=== PATIENT | male | born 1995 | race African-American/Black ===

== ENCOUNTER 2017-10-11 21:52 | Emergency (ER) | payer MEDICAID, OTHER ==
[2017-10-11 22:56] LABS: ABSOLUTE BASOPHILS # (AUTO) 0.1 10^3/uL (0.0-0.2); ABSOLUTE EOSINOPHILS # (AUTO) 0.2 10^3/uL (0.0-0.6); ABSOLUTE LYMPHOCYTES (AUTO) 2.2 10^3/uL (0.5-4.7); ABSOLUTE MONOCYTES (AUTO) 0.6 10^3/uL (0.1-1.4); ABSOLUTE NEUT (AUTO) 7.4 10^3/uL (1.7-8.2); BASOPHILS % (AUTO) 0.8 % (0-2); EOSINOPHILS % (AUTO) 2.1 % (0-6); HEMATOCRIT 43.7 % (37.9-51.0); HEMOGLOBIN 14.8 g/dL (13.5-17.0); LYMPHOCYTES % (AUTO) 20.9 % (13-45); MEAN CORPUSCULAR HEMOGLOBIN 30.5 pg (27.0-33.4); MEAN CORPUSCULAR HGB CONC 33.8 g/dL (32.0-36.0); MEAN CORPUSCULAR VOLUME 90 fl (80-97); MONOCYTES % (AUTO) 6.1 % (3-13); PLATELET COUNT 221 10^3/uL (150-450); RED BLOOD COUNT 4.84 10^6/uL (4.35-5.55); RED CELL DISTRIBUTION WIDTH 13.3 % (11.5-14.0); SEGMENTED NEUTROPHILS % (AUTO) 70.1 % (42-78); TOTAL CELLS COUNTED % (AUTO) 100 %; WHITE BLOOD COUNT 10.6 10^3/uL (4.0-10.5)
[2017-10-11 23:08] LABS: ACETAMINOPHEN < 10 ug/mL (10-30); ALANINE AMINOTRANSFERASE 25 U/L (21-72); ALBUMIN 4.8 g/dL (3.5-5.0); ALCOHOL < 10 mg/dL (NONE DETECTED); ALKALINE PHOSPHATASE 56 U/L (38-126); ANION GAP 10 (5-19); ASPARTATE AMINO TRANSFERASE 28 U/L (17-59); BILIRUBIN,DIRECT 0.2 mg/dL (0.0-0.4); BILIRUBIN,TOTAL 0.3 mg/dL (0.2-1.3); BLOOD UREA NITROGEN 14 mg/dL (7-20); CALCIUM 9.9 mg/dL (8.4-10.2); CARBON DIOXIDE 29 mmol/L (22-30); CHLORIDE 105 mmol/L (98-107); GLUCOSE 81 mg/dL (75-110); POTASSIUM 4.1 mmol/L (3.6-5.0); SALICYLATE < 1.0 mg/dL (2.0-20.0); SODIUM 144.3 mmol/L (137-145); TOTAL PROTEIN 7.8 g/dL (6.3-8.2)
--- NOTE | 2017-10-11 23:48 | ER Document Report ---
ED General - General Chief Complaint: Psych Problem Stated Complaint: PSYCH EVAL Time Seen by Provider: 10/11/17 22:28 Notes: Patient is a 21-year-old male with a past medical history of schizophrenia currently off all medications who presents with several months of progressive worsening paranoia, fear that he is trying to microwave his brain. Patient was on Abilify in the past but discontinued this approximately in November or December 2016. The patient does admit that he realizes some of his symptoms could be psychiatric in origin. He states that he spends most of his day thinking about how the [employer] government is trying to, occasionally painting does not do any productive activity. He is here with his mother who expressed significant concerns about her son's deteriorating mental status although she knows that he has not expressed any acute safety concerns to her such as suicidal or homicidal ideation. He has not demonstrated any patient denies any acute medical complaints. He denies any improve or worsen his symptoms. TRAVEL OUTSIDE OF THE [place] IN LAST 30 DAYS: No - Related Data Allergies/Adverse Reactions: Sulfa (Sulfonamide Antibiotics) Allergy (Verified 03/17/15 23:07) pet dander Allergy (Uncoded 02/13/15 06:05) Past Medical History - General Information source: Patient - Social History Smoking Status: Never Smoker Chew tobacco use (# tins/day): No Frequency of alcohol use: None Drug Abuse: None Lives with: Alone Family History: Reviewed & Not Pertinent Patient has suicidal ideation: No Patient has homicidal ideation: No Pulmonary Medical History: Reports: Hx Asthma Renal/ Medical History: Denies: Hx Peritoneal Dialysis Psychiatric Medical History: Reports: Hx Bipolar Disorder, Hx Depression, Hx Schizophrenia Past Surgical History: Reports: Hx Oral Surgery Review of Systems - Review of Systems Notes: Constitutional: Negative for fever. HENT: Negative for sore throat. Eyes: Negative for visual changes. Cardiovascular: Negative for chest pain. Respiratory: Negative for shortness of breath. Gastrointestinal: Negative for abdominal pain, vomiting or diarrhea. Genitourinary: Negative for dysuria. Musculoskeletal: Negative for back pain. Skin: Negative for rash. Neurological: Negative for headaches, weakness or numbness. 10 point ROS negative except as marked above and in HPI. Physical Exam - Vital signs Vitals: Temp Pulse Resp BP Pulse Ox 98 F 87 18 139/81 H 97 10/11/17 22:08 10/11/17 22:08 10/11/17 22:08 10/11/17 22:08 10/11/17 22:08 Interpretation: Normal Notes: PHYSICAL EXAMINATION: GENERAL: Malodorous, somewhat disheveled but in no distress. HEAD: Atraumatic, normocephalic. EYES: Pupils equal round and reactive to light, extraocular movements intact, sclera anicteric, conjunctiva are normal. ENT: nares patent, oropharynx clear without exudates. Moist mucous membranes. NECK: Normal range of motion, supple without lymphadenopathy LUNGS: Breath sounds clear to auscultation bilaterally and equal. No wheezes rales or rhonchi. HEART: Regular rate and rhythm without murmurs ABDOMEN: Soft, nontender, normoactive bowel sounds. No guarding, no rebound. No masses appreciated. EXTREMITIES: Normal range of motion, no pitting or edema. No cyanosis. NEUROLOGICAL: No focal neurological deficits. Moves all extremities spontaneously and on command. PSYCH: Poor eye contact, blunted mood, not responding to any internal stimuli. SKIN: Warm, Dry, normal turgor, no rashes or lesions noted. Course - Re-evaluation Re-evalutation: 10/11/17 23:47 Patient presents with obvious paranoid delusions although does not be appear to be responding to internal similar at the time of my assessment. It sounds as though this has been an ongoing issue for at least the past several months. Patient denies any acute suicidal or homicidal ideations. Otherwise nontoxic in appearance. He is malodorous with obvious poor hygiene. He used to be on Abilify injections but has discontinued these for at least the past 9-10 months. I have encouraged the patient remain in the emergency department and speak to psychiatry in the morning as he does not meet obvious criteria to be involuntarily committed at this time. He is agreeable to do so at this time. Medical screening exam and labs are unremarkable. - Vital Signs Vital signs: Temp Pulse Resp BP Pulse Ox 99.3 F 79 16 138/88 H 98 10/11/17 22:51 10/11/17 22:51 10/11/17 22:51 10/11/17 22:51 10/11/17 22:51 - Laboratory Result Diagrams: 10/11/17 21:35 10/11/17 21:35 Laboratory results interpreted by me: 10/11/17 10/11/17 21:35 21:35 WBC 10.6 H Salicylates < 1.0 L Acetaminophen < 10 L - EKG Interpretation by Me Additional EKG results interpreted by me: 10/12/17 00:30 Normal sinus rhythm. Rate 82. No ST elevations or depressions. QTC is 402. Discharge - Discharge Clinical Impression: Paranoia Psychosis Qualifiers: Psychosis type: unspecified psychosis type Qualified Code(s): F29 - Unspecified psychosis not due to a substance or known physiological condition Condition: Fair Referrals: KENNETH MOORE DO [Primary Care Provider] - Follow up as needed
--- NOTE | 2017-10-12 09:05 | ER Document Report ---
ED Psych Disorder / Suicide - General Chief Complaint: Psych Problem Stated Complaint: PSYCH EVAL Time Seen by Provider: 10/11/17 22:28 Notes: I have evaluated this patient this am and has no c/o at this time. Feels all of their needs are being met and physical exam is normal. Awaiting dispositon per mental health. TRAVEL OUTSIDE OF THE [place] IN LAST 30 DAYS: No - Related Data Allergies/Adverse Reactions: Sulfa (Sulfonamide Antibiotics) Allergy (Verified 03/17/15 23:07) pet dander Allergy (Uncoded 02/13/15 06:05) Past Medical History - General Information source: Patient - Social History Smoking Status: Never Smoker Chew tobacco use (# tins/day): No Frequency of alcohol use: None Drug Abuse: None Lives with: Alone Family History: Reviewed & Not Pertinent Patient has suicidal ideation: No Patient has homicidal ideation: No Pulmonary Medical History: Reports: Hx Asthma Renal/ Medical History: Denies: Hx Peritoneal Dialysis Psychiatric Medical History: Reports: Hx Bipolar Disorder, Hx Depression, Hx Schizophrenia Past Surgical History: Reports: Hx Oral Surgery Physical Exam - Vital signs Vitals: Temp Pulse Resp BP Pulse Ox 98 F 87 18 139/81 H 97 10/11/17 22:08 10/11/17 22:08 10/11/17 22:08 10/11/17 22:08 10/11/17 22:08 Course - Vital Signs Vital signs: Temp Pulse Resp BP Pulse Ox 97.6 F 89 16 124/72 98 10/12/17 06:28 10/12/17 06:28 10/12/17 06:28 10/12/17 06:28 10/12/17 06:28 - Laboratory Result Diagrams: 10/11/17 21:35 10/11/17 21:35 Laboratory results interpreted by me: 10/11/17 10/11/17 21:35 21:35 WBC 10.6 H Salicylates < 1.0 L Acetaminophen < 10 L Discharge - Discharge Clinical Impression: Paranoia Psychosis Qualifiers: Psychosis type: unspecified psychosis type Qualified Code(s): F29 - Unspecified psychosis not due to a substance or known physiological condition Condition: Fair Referrals: KENNETH MOORE DO [Primary Care Provider] - Follow up as needed
--- NOTE | 2017-10-12 09:08 | ER Document Report ---
Doctor's Note Notes: 10/12/17 09:07 I have evaluated this patient this am and has no c/o at this time. Feels all of their needs are being met and physical exam is normal. Awaiting dispositon per mental health.
--- NOTE | 2017-10-12 09:37 | EKG REPORT ---
SEVERITY:- NORMAL ECG - SINUS RHYTHM : Confirmed by: Caitlin Olvera 12-Oct-2017 09:36:16
[2017-10-12 10:27] LABS: APPEARANCE,URINE CLEAR; BILIRUBIN,URINE NEGATIVE (NEGATIVE); COLOR,URINE YELLOW; GLUCOSE, URINE NEGATIVE (NEGATIVE); KETONES,URINE NEGATIVE (NEGATIVE); LEUKOCYTE ESTERASE,URINE TRACE (NEGATIVE); NITRITE,URINE NEGATIVE (NEGATIVE); PROTEIN,URINE NEGATIVE (NEGATIVE); UROBILINOGEN,URINE NEGATIVE mg/dL (<2.0)
[2017-10-12 10:41] LABS: URINE AMPHETAMINES SCREEN NEGATIVE; URINE BARBITURATES SCREEN NEGATIVE; URINE BENZODIAZEPINES SCREEN NEGATIVE; URINE COCAINE SCREEN NEGATIVE; URINE MARIJUANA (THC) SCREEN NEGATIVE; URINE METHADONE SCREEN NEGATIVE; URINE PHENCYCLIDINE SCREEN NEGATIVE
[2017-10-12] MEDS ORDERED: OLANZAPINE 5 MG TABLET PO SCH (12:45)
[2017-10-12] MEDS ORDERED: BENZTROPINE MESYLATE 1 MG TABLET PO SCH ×2 (12:45→22:00)
--- NOTE | 2017-10-12 13:03 | PSYCHOLOGICAL NOTE ---
Psych Note - Psych Note Psych Note: Reason for consult: Acute psychosis Contact permissions: Teresa Goetz [phone] Eval: [id number] Final Disposition 11:30am Patient is a 21-year-old male. Patient reports people were sending transcranial magnetic stimulation to his brain using thermal cameras. Patient reports he noticed there was a hole in the roof where someone inserted the device that would transmit the stimulation. Patient reports that he wants to ruiz the government because of their involvement. Patient reports his mom convinced him to come here although he does not believe in psychiatrists stating they are "Frauds". Patient reports he is comfortable with speaking to a psychologist instead as they are not frauds. Patient reports he cannot trust doctors because they are "in on it". Patient reports that he does not have a job and has lived with his mom over the last month. Patient reports he was living with a roommate but states the roommate had a friend who was managing him and stealing his life from him. Patient reports it is hard for him to trust people. Patient reports that he can think illogical and logical. Patient reports he saw someone on and felt that that person was talking him. Patient reports he was going to [facility] and saw Dr. Naranjo as his primary care. Patient reports that he moved out December 21, 2016 and moved back in month ago. Patient reports he does not do drugs or alcohol. Patient reports he graduated from [email or web address] in 2014. Patient reports he went to [facility] last year. Collateral information: Patient's mother Teresa Goetz was present in the room Patient's mother reports patient was diagnosed with anxiety his senior year of high school and then he started to hear voices and seeing things that were not there. Patient's mother reports that while a senior he would think she was talking to him when she was not and stated that he was then diagnosed with schizophrenia. Patient's mother reports that he ended up going to [facility] in 2015 and stated that when he returned home after several weeks she was able to give him the decanoate shot 3 months in a row where everything was good. Patient's mother reports that he then moved out with her roommate and refused to take meds because he felt like they did not help him and that he did not need it. Patient's mother reports that she picked him up a month ago and states that in the month he has not left his room go outside. Patient's mother reports that she convinced him to go outside last week where he ended up cursing at the neighbors because he felt someone was stalking him. Patient's mother reports that patient called the nurse's assistant 2 weeks ago because he felt that the [employer] was spying on him. Patient's mother reports that yesterday patient ran outside to yell at the neighbors because he was not trusting them. Patient's mother reports that patient was on Abilify 15 mg in the morning, Lexapro 10 mg daily, and divalproex every day 500 mg however these prescriptions were last given in 2016 and states she had convinced him to take all medication this last week. Patient's mother reports that when he is hearing things it hard for him to calm himself down but he was able to do that last week. Patient's mother reports that if he took medications she feels he could be calmer. Patient's mother reports patient was talking about federal equipment and police government conspiracy theories prior to her convincing him to come to the emergency department. Medication recommendations made by [facility] a contracted psychiatric provider Dr. Carmela MD includes 1. Begin Depakote 500 mg twice a day 2. Begin Zyprexa 5 mg twice a day 3. Begin Cogentin 1 mg daily Diagnosis: Per Hx ( patient's mother reports) 295.90 (F20.9) Schizophrenia Impression/plan: Recommendation for 24 hour hold/petition due to patient experiencing acute psychosis associated with schizophrenia diagnosis. Mental health to reassess at a later time. Patient reports the [employer], federal government, and police are conspiring against him, he is untrusting and believe everything is a fraud. Attending physician in agreement with plan. Consulted with Dr. Newby regarding the management and care of patient.
[2017-10-12] MEDS: DIVALPROEX SODIUM 250 MG TABLET.DR PO SCH (13:58)
[2017-10-12] MEDS: OLANZAPINE 5 MG TABLET PO SCH (22:10)
[2017-10-13] MEDS: DIVALPROEX SODIUM 250 MG TABLET.DR PO SCH (01:00)
--- NOTE | 2017-10-13 09:56 | ER Document Report ---
Doctor's Note Notes: 10/13/17 09:55 Rounds: Chart reviewed and patient interviewed. Patient's mother at bedside during conversation. Vital signs are all normal. Lab studies were all essentially normal. Patient is being evaluated for psychosis with paranoid thoughts. History of schizophrenia. He says he is feeling better. Somewhat slow to answer questions. Patient appears to be medically stable for transfer or discharge. Reji Miller MD
[2017-10-13] MEDS: OLANZAPINE 5 MG TABLET PO SCH (10:25)
--- NOTE | 2017-10-13 11:39 | PSYCHOLOGICAL NOTE ---
Psych Note - Psych Note Psych Note: Reason for consult: Schizophrenia and Paranoia Contact permissions: Teresa Goetz [phone] Patient is a 21-year-old male. Patient reports he is feeling much better and not thinking a lot about the neighbors. Patient reports that he feels the medication helped him get sleep. Patient reports he slept through the night. Patient reports he will follow-up with the provider. Patient reports he will continue taking the medications. Patient reports that he wants to be able to work in 1 day live on his own. Patient reports that he does not feel that there are any transcranial magnetic stimulation happening at this time. Collateral Information: Teresa Goetz Patient's mother reports she noticed patient finally slept and had not been sleeping for days. Patient's mother reports that she will transport patient to appointments and help him fill his prescriptions at the pharmacy. Patient's mother reports that she will keep an eye on patient and will bring him back to the emergency room if she feels he is a harm to himself or others. Patient's mother reports at this time she is not concerned for his safety or others. Med[facility] psychiatric provider Dr. Carmela MD includes 1. Continue Depakote 500 mg twice a day 2. Continue Zyprexa 5 mg twice a day 3. Continue Cogentin 1 mg daily Diagnosis: Per Hx ( patient's mother reports) 295.90 (F20.9) Schizophrenia Impression/plan: Recommendation to rescind involuntary commitment due to patient not meeting criteria [place] GS 122C. Clinician observed patient has improved since yesterday's assessment. Clinician observed patient is more willing to follow-up with an outpatient provider. patient's mother agrees to transport and is included in the safety plan. Clinician provided education to patient and patient's mother regarding the importance of being proactive with his mental health diagnosis of schizophrenia and discussed different treatment options. Mental health [facility] at 12 PM. Attending physician in agreement with gerard Newby regarding the management and care of patient.
[2017-10-13 13:01] VITALS: BP 134/78
== END 2017-10-13 12:38 | disposition home or self-care (01) ==
LOC: ER 21:52
DX: F20.9 Schizophrenia, unspecified (principal); F22 Delusional disorders; J45.909 Unspecified asthma, uncomplicated
CPT/HCPCS: 93005; 99285; 36415; 80307 ×4; 85025; 80053; 81001; 93010; J3490 ×5

== ENCOUNTER 2017-10-18 23:38 | Emergency (ER) | payer MEDICAID ==
[2017-10-12] MEDS: OLANZAPINE 5 MG TABLET PO SCH (18:23)
--- NOTE | 2017-10-19 02:24 | ER Document Report ---
ED General - General Chief Complaint: Psych Problem Stated Complaint: IVC Time Seen by Provider: 10/19/17 01:05 Notes: Patient is a 21-year-old male who presents with complaints of feeling that "there radiowave frequency transcranial radiation and shockwaves penetrating my brain". It is hard to expect with the patient came from. He initially said he was staying at her house but felt the people were stalking him therefore he wants to have his mother. He did mention his mother was sitting to to his father's but he did not go to his father's. He then said that the FBI brought him here. He also said that the [employer] agency made him come here as well. Patient has a history of schizophrenia. When I asked him if he has been taking his medications he says "psychiatry is a scan". I suspect he does not take his medications based on his comments and is obvious paranoid delusions that he is having now. He denies any recent fevers or infections. He has no other complaints at this time. His only request is that we do testing for the "transcranial radiation" that people are sending to his brain. TRAVEL OUTSIDE OF THE [place] IN LAST 30 DAYS: No - Related Data Allergies/Adverse Reactions: Sulfa (Sulfonamide Antibiotics) Allergy (Verified 03/17/15 23:07) pet dander Allergy (Uncoded 02/13/15 06:05) Past Medical History - Social History Smoking Status: Unknown if Ever Smoked Frequency of alcohol use: None Drug Abuse: None Family History: Reviewed & Not Pertinent Pulmonary Medical History: Reports: Hx Asthma Renal/ Medical History: Denies: Hx Peritoneal Dialysis Psychiatric Medical History: Reports: Hx Bipolar Disorder, Hx Depression, Hx Schizophrenia Past Surgical History: Reports: Hx Oral Surgery Review of Systems - Review of Systems Notes: My Normal Review Basic REVIEW OF SYSTEMS: CONSTITUTIONAL : Denies fever, chills, or sweats. Denies recent illness. EENT: Denies eye, ear, throat, or mouth pain or symptoms. Denies nasal or sinus congestion. CARDIOVASCULAR: Denies chest pain. RESPIRATORY: Denies cough, cold, or chest congestion. Denies shortness of breath, difficulty breathing, or wheezing. GASTROINTESTINAL: Denies abdominal pain. Denies nausea, vomiting, or diarrhea. Denies constipation. Last BM: MUSCULOSKELETAL: Denies neck or back pain or joint pain or swelling. SKIN: Denies rash or skin lesions. NEUROLOGICAL: Denies altered mental status or loss of consciousness. Denies headache. Denies weakness or paralysis or loss of use of either side. Denies problems with gait or speech. Denies sensory or motor loss. PSYCHIATRIC: Hallucinations ALL OTHER SYSTEMS REVIEWED AND NEGATIVE. Physical Exam - Vital signs Vitals: Temp Pulse Resp BP Pulse Ox 98.5 F 79 20 150/87 H 96 10/19/17 01:01 10/19/17 01:10/19/17 01:10/19/17 01:01 10/19/17 01:01 - Notes Notes: General Appearance: Well nourished, alert, cooperative, no acute distress, no obvious discomfort. Vitals: reviewed, See vital signs table. Head: no swelling or tenderness to the head Eyes: PERRL, EOMI, Conjuctiva clear Mouth: No decreasd moisture Lungs: No wheezing, No rales, No rhonci, No accessory muscle use, good air exchange bilaterally. Heart: Normal rate, Regular rythm, No murmur, no rub Abdomen: Normal BS, soft, No rigidity, No abdominal tenderness, No guarding, no rebound, no abdominal masses, no organomegaly Extremities: strength 5/5 in all extremities, good pulses in all extremities, no swelling or tenderness in the extremities, no edema. Skin: warm, dry, appropriate color, no rash Neuro: speech clear, oriented x 3, normal affect, responds appropriately to questions. Psychiatric: Patient has ongoing delusions and was seen to be paranoid schizophrenic and that he thinks that secret government agencies were after him and that he is receiving all kinds of radiation to his brain. Does not seem suicidal or homicidal. Course - Re-evaluation Re-evalutation: 10/19/17 05:11 Patient appears to be having active delusions and I suspect is not on his medications based on the fact that he says that psychiatry is a scam. Have consulted psychiatry to see him this morning. Medically patient is stable for psychiatric evaluation. Dictation of this chart was performed using voice recognition software; therefore, there may be some unintended grammatical errors. - Vital Signs Vital signs: Temp Pulse Resp BP Pulse Ox 98.5 F 79 20 150/87 H 96 10/19/17 01:01 10/19/17 01:10/19/17 01:01 10/19/17 01:01 10/19/17 01:01 - Laboratory Result Diagrams: 10/19/17 02:08 10/19/17 02:08 Laboratory results interpreted by me: 10/19/17 02:08 Sodium 145.7 H Total Bilirubin 0.1 L Salicylates < 1.0 L Acetaminophen < 10 L - EKG Interpretation by Me Additional EKG results interpreted by me: 10/19/17 02:24 EKG is reviewed and interpreted by me. EKG shows normal sinus rhythm with a rate of 79 bpm. There is concave up ST segment elevation consistent with early repolarization abnormality. No reciprocal ST segment depressions. PA interval , QRS duration, QTc intervals are within normal range. Old EKG for comparison is from October 11, 2017. Discharge - Discharge Clinical Impression: Delusions Schizophrenia Qualifiers: Schizophrenia type: unspecified Qualified Code(s): F20.9 - Schizophrenia, unspecified Condition: Stable Disposition: PSYCH HOSP/UNIT Referrals: KENNETH MOORE DO [Primary Care Provider] - Follow up as needed
[2017-10-19 02:28] LABS: ABSOLUTE BASOPHILS # (AUTO) 0.1 10^3/uL (0.0-0.2); ABSOLUTE EOSINOPHILS # (AUTO) 0.2 10^3/uL (0.0-0.6); ABSOLUTE LYMPHOCYTES (AUTO) 2.8 10^3/uL (0.5-4.7); ABSOLUTE MONOCYTES (AUTO) 0.7 10^3/uL (0.1-1.4); ABSOLUTE NEUT (AUTO) 6.2 10^3/uL (1.7-8.2); BASOPHILS % (AUTO) 0.7 % (0-2); EOSINOPHILS % (AUTO) 1.8 % (0-6); HEMATOCRIT 43.1 % (37.9-51.0); HEMOGLOBIN 14.4 g/dL (13.5-17.0); LYMPHOCYTES % (AUTO) 28.6 % (13-45); MEAN CORPUSCULAR HGB CONC 33.3 g/dL (32.0-36.0); MEAN CORPUSCULAR VOLUME 90 fl (80-97); PLATELET COUNT 207 10^3/uL (150-450); RED BLOOD COUNT 4.79 10^6/uL (4.35-5.55); RED CELL DISTRIBUTION WIDTH 13.6 % (11.5-14.0); SEGMENTED NEUTROPHILS % (AUTO) 61.9 % (42-78); TOTAL CELLS COUNTED % (AUTO) 100 %; WHITE BLOOD COUNT 9.9 10^3/uL (4.0-10.5)
[2017-10-19 02:46] LABS: ALANINE AMINOTRANSFERASE 31 U/L (21-72); ALBUMIN 4.4 g/dL (3.5-5.0); ALKALINE PHOSPHATASE 53 U/L (38-126); ANION GAP 13 (5-19); ASPARTATE AMINO TRANSFERASE 29 U/L (17-59); BILIRUBIN,DIRECT 0.1 mg/dL (0.0-0.4); BILIRUBIN,TOTAL 0.1 mg/dL (0.2-1.3); BLOOD UREA NITROGEN 14 mg/dL (7-20); CALCIUM 9.6 mg/dL (8.4-10.2); CARBON DIOXIDE 30 mmol/L (22-30); CHLORIDE 103 mmol/L (98-107); GLUCOSE 102 mg/dL (75-110); SODIUM 145.7 mmol/L (137-145); TOTAL PROTEIN 7.2 g/dL (6.3-8.2)
[2017-10-19 02:50] LABS: ACETAMINOPHEN < 10 ug/mL (10-30); ALCOHOL < 10 mg/dL (NONE DETECTED); SALICYLATE < 1.0 mg/dL (2.0-20.0)
--- NOTE | 2017-10-19 08:11 | EKG REPORT ---
SEVERITY:- NORMAL ECG - SINUS RHYTHM ST ELEV, PROBABLE NORMAL EARLY REPOL PATTERN : Confirmed by: Tapan Monterroso MD 19-Oct-2017 08:11:09
[2017-10-19 09:13] LABS: APPEARANCE,URINE CLEAR; BILIRUBIN,URINE NEGATIVE (NEGATIVE); COLOR,URINE YELLOW; GLUCOSE, URINE NEGATIVE (NEGATIVE); KETONES,URINE NEGATIVE (NEGATIVE); LEUKOCYTE ESTERASE,URINE NEGATIVE (NEGATIVE); NITRITE,URINE NEGATIVE (NEGATIVE); PROTEIN,URINE NEGATIVE (NEGATIVE); UROBILINOGEN,URINE NEGATIVE mg/dL (<2.0)
--- NOTE | 2017-10-19 09:24 | ER Document Report ---
Doctor's Note Notes: 10/19/17 09:23 21-year-old male who is brought in with obvious delusions apparently not taking his medications for schizophrenia. Labs and vital signs as recorded. Awaiting psychiatry evaluation. 10/19/17 11:24 Psychiatry has had a medication recommendations and will hold the patient for reevaluation.
[2017-10-19 09:32] LABS: URINE AMPHETAMINES SCREEN NEGATIVE; URINE BARBITURATES SCREEN NEGATIVE; URINE BENZODIAZEPINES SCREEN NEGATIVE; URINE COCAINE SCREEN NEGATIVE; URINE MARIJUANA (THC) SCREEN UNCONFIRMED POSITIVE; URINE METHADONE SCREEN NEGATIVE; URINE PHENCYCLIDINE SCREEN NEGATIVE
[2017-10-19] MEDS ORDERED: BENZTROPINE MESYLATE 1 MG TABLET PO SCH (11:30)
[2017-10-19] MEDS: OLANZAPINE 5 MG TABLET PO SCH (12:07)
[2017-10-19] MEDS: DIVALPROEX SODIUM 500 MG TAB.SR.24H PO SCH ×2 (12:08→18:23)
[2017-10-19] MEDS ORDERED: BENZTROPINE MESYLATE 1 MG TABLET PO ONE (12:45)
--- NOTE | 2017-10-19 13:54 | PSYCHOLOGICAL NOTE ---
Psych Note - Psych Note Psych Note: Reason for consult: Mikey Eval: [id number] Final Disposition: 11:30 am Contact Permissions: Patient's mother Teresa [phone] Patient is a 21-year-old male. Patient reports yesterday they were moving in with his granddad. Patient reports he felt the magnetic waves were getting to him. Patient reports he felt he was being followed by the FBI. Patient reports he went outside to get away from the waves and stated that his granddad told him that he was going to kill him. Patient reports he then went to his mom and stated that his mom said the granddad did not say that and did not believe him. Patient reports that everyone around him has been "talking disorderly". Patient reports he feels as if the staff at the hospital are "talking disorderly". Patient reports that he saw Ricky Koroma walking in the way that he did, and when Ricky Koroma turned " to the left" he knew that he was in on it. Patient reports he has been trying to tell people about Ricky Koroma and stated he wrote letters to Ricky Koroma and Sumi then put them on a thumb drive and mailed the thumb drives to them. Patient reports he was emailing Sumi ( a politician) about the waves and stated that she called the police on him and so the government became involved and started to watch him. Patient reports if he could build something that will stop the transmission waves such as repellent that could repel something that is 60 pounds he would feel safe in his home. Patient reports he does not feel safe in his new home because of his granddad and the waves. Patient reports when he feels safe and better he will stay alone in his room so he could do art and sell it so that he could get his own place. Collateral information: Patient's mother Teresa Goetz (present in room) Patient's mother reports they followed up with [facility] and stated they did not like the provider because they changed his medications assuming that they could not afford the medications that were prescribed at the hospital. Patient's mother reports she was upset because he made a judgment based on what they look like and stated she is willing to pay whatever it takes to give her some the best medications. Patient's mother reports that he was doing fine on the medicines but stated after the visit with the provider he was not trusting of the medications so he did not take them and would only take his vitamins. Patient's mother reports when they discharge she would like a referral for a different provider and stated she heard about [facility] and would like to follow up with them. Patient's mother reports they did move yesterday and are still in the process of moving and states that it is stressing out the patient. Diagnosis: Per Hx ( patient's mother reports) 295.90 (F20.9) Schizophrenia Medication recommendations made by [facility] contracted provider Dr. Carmela MD includes: Begin Depakote 500 mg twice a day Begin Zyprexa 5 mg twice a day Begin Cogentin 1 mg daily Impression/plan: Recommendation for 24-hour petition. Medication recommendations were made. Patient is endorsing paranoid behaviors, and has not been on the medication regiment that was previously recommended during his last visit. Mental health to reassess at a later time. Attending physician in agreement with plan. Consulted with Dr. Newby regarding the management and care of patient.
--- NOTE | 2017-10-20 09:22 | ER Document Report ---
Doctor's Note Notes: 10/20/17 09:22 As the rounding physician for our psychiatric patients, I have reviewed the chart, vitals, lab work. Patient has been examined and noted to be stable at this time, patient in no distress. I am awaiting mental health in put. 10/20/17 10:02
--- NOTE | 2017-10-20 10:02 | PSYCHOLOGICAL NOTE ---
Psych Note - Psych Note Psych Note: Reason for consult: Paranoia Eval: [id number] Final Disposition 11:30 am Contact Permissions: Teresa Goetz Patient is a 21 year old male. Patient reports he plans on thinking about his thoughts when he feels that people are talking in threatening way. Patient reports he thought about was granddad said and said even if it were true he would just go to his room. Patient reports when he feels his mother is talking "disorderly" he wants to go to his room and spent some time alone. Patient reports he plans on building things in the backyard to pass time. Patient reports he will do art work and ride his bike around the neighborhood to cope with his feelings of paranoia. Patient reports he wants to follow-up with [facility] and states that he wants his mother to coordinate everything because she helps him out with a lot. Patient reports at this time he accepted that he has to live with them and states that he will live with his granddad until one day he gets a job. Collateral information: Patient's mother Teresa Goetz Patient's mother reports that patient gets paranoid, and was paranoid about his grandfather but states that wants him to realize that it is not true. Patient's mother reports it is hard, and she knows that he is not very trusting. Patient' s mother reports she is concerned patient will stop taking his medications. Patient's mother reports she wants patient to go to an inpatient psychiatric facility because then he would be forced to take his medications. Patient's mother reports she knows that he isn't suicidal and homicidal, but that taking care of him is not easy, and she feels she just wants him to go somewhere. Patient's mother reports when he gets paranoid like what happened with him thinking his granddad wanted to hurt him she wants to call the police. Patient' s mother reports she let patient know he can't "be acting like that" or she will call the police on him. Clinician provided psycho-education on symptoms of schizophrenia, and the correlation between environmental stresses and presentation of schizophrenia. Diagnosis: Per Hx ( patient's mother reports) 295.90 (F20.9) Schizophrenia Medication recommendations made by [facility] contracted provider Dr. Carmela MD includes: Continue Depakote 500 mg twice a day Continue Zyprexa 5 mg twice a day Continue Cogentin 1 mg daily Impression/Plan: Patient is psychiatrically cleared for discharge. Recommendation to rescind involuntary commitment due to patient not meeting criteria [place] GS 122C. Patient denied SI/HI and is not endorsing HI. Clinician observed patient is experiencing stresses ( moving) that were exacerbating his symptoms of schizophrenia, patient recently moved to his grandfather's home with his mother. Clinician observed patient's symptoms can be managed in outpatient setting, recommendation for patient to follow up with [facility] appointment scheduled . Clinician coordinated with patient's mother Teresa who agreed to transport patient to his appointment and safety plan in the home. Attending physician in agreement with plan. Consulted with Dr. Newby regarding the management and care of patient.
[2017-10-20] MEDS ORDERED: OLANZAPINE 5 MG TABLET PO ONE (12:00)
[2017-10-20] MEDS ORDERED: DIVALPROEX SODIUM 500 MG TAB.SR.24H PO ONE (12:00)
[2017-10-20] MEDS ORDERED: BENZTROPINE MESYLATE 1 MG TABLET PO ONE (12:00)
[2017-10-20 12:41] VITALS: BP 129/82
== END 2017-10-20 12:25 | disposition home or self-care (01) ==
LOC: ER 23:38
DX: Z04.6 Encounter for general psychiatric examination, requested by authority (principal); F20.0 Paranoid schizophrenia; J45.909 Unspecified asthma, uncomplicated; Z88.2 Allergy status to sulfonamides; Z91.048 Other nonmedicinal substance allergy status
CPT/HCPCS: 93005; 99285; 36415; 80307 ×4; 85025; 80053; 81001; 93010; J3490 ×6

== ENCOUNTER 2017-11-18 18:33 | Emergency (ER) | payer MEDICAID, OTHER ==
[2017-11-18 19:38] LABS: ABSOLUTE BASOPHILS # (AUTO) 0.1 10^3/uL (0.0-0.2); ABSOLUTE EOSINOPHILS # (AUTO) 0.2 10^3/uL (0.0-0.6); ABSOLUTE LYMPHOCYTES (AUTO) 2.2 10^3/uL (0.5-4.7); ABSOLUTE MONOCYTES (AUTO) 0.6 10^3/uL (0.1-1.4); ABSOLUTE NEUT (AUTO) 5.7 10^3/uL (1.7-8.2); BASOPHILS % (AUTO) 1.1 % (0-2); EOSINOPHILS % (AUTO) 1.8 % (0-6); HEMATOCRIT 43.2 % (37.9-51.0); HEMOGLOBIN 14.5 g/dL (13.5-17.0); LYMPHOCYTES % (AUTO) 24.9 % (13-45); MEAN CORPUSCULAR HEMOGLOBIN 30.4 pg (27.0-33.4); MEAN CORPUSCULAR HGB CONC 33.5 g/dL (32.0-36.0); MEAN CORPUSCULAR VOLUME 91 fl (80-97); MONOCYTES % (AUTO) 7.3 % (3-13); PLATELET COUNT 239 10^3/uL (150-450); RED BLOOD COUNT 4.76 10^6/uL (4.35-5.55); SEGMENTED NEUTROPHILS % (AUTO) 64.9 % (42-78); TOTAL CELLS COUNTED % (AUTO) 100 %; WHITE BLOOD COUNT 8.7 10^3/uL (4.0-10.5)
[2017-11-18 19:43] LABS: APPEARANCE,URINE SLIGHTLY-CLOUDY; BILIRUBIN,URINE NEGATIVE (NEGATIVE); COLOR,URINE YELLOW; GLUCOSE, URINE NEGATIVE (NEGATIVE); KETONES,URINE NEGATIVE (NEGATIVE); LEUKOCYTE ESTERASE,URINE TRACE (NEGATIVE); NITRITE,URINE NEGATIVE (NEGATIVE); PROTEIN,URINE NEGATIVE (NEGATIVE); URINE SPECIFIC GRAVITY 1.029; UROBILINOGEN,URINE NEGATIVE mg/dL (<2.0)
[2017-11-18 19:58] LABS: ALANINE AMINOTRANSFERASE 29 U/L (21-72); ALBUMIN 4.4 g/dL (3.5-5.0); ALKALINE PHOSPHATASE 52 U/L (38-126); ANION GAP 13 (5-19); ASPARTATE AMINO TRANSFERASE 38 U/L (17-59); BILIRUBIN,DIRECT 0.2 mg/dL (0.0-0.4); BILIRUBIN,TOTAL 0.2 mg/dL (0.2-1.3); BLOOD UREA NITROGEN 19 mg/dL (7-20); CALCIUM 9.8 mg/dL (8.4-10.2); CARBON DIOXIDE 26 mmol/L (22-30); CHLORIDE 105 mmol/L (98-107); GLUCOSE 93 mg/dL (75-110); POTASSIUM 4.2 mmol/L (3.6-5.0); SODIUM 143.6 mmol/L (137-145); TOTAL PROTEIN 7.5 g/dL (6.3-8.2)
[2017-11-18 20:00] LABS: ACETAMINOPHEN < 10 ug/mL (10-30); ALCOHOL < 10 mg/dL (NONE DETECTED); SALICYLATE < 1.0 mg/dL (2.0-20.0)
--- NOTE | 2017-11-18 20:02 | ER Document Report ---
ED General - General Chief Complaint: Psych Problem Stated Complaint: PSYCH EVAL Time Seen by Provider: 11/18/17 18:49 TRAVEL OUTSIDE OF THE [place] IN LAST 30 DAYS: No - HPI Patient complains to provider of: Psych evaluation Notes: Patient coming in for hallucinations going to the IVC paperwork patient has not been taking any of his medications having hallucinations and threats and possible harm to himself and others. Upon my evaluation patient states that under comfort licensed club manager brought him in and have been monitoring him for quite some time. Patient is asked me if we have the proper equipment to identify listening devices and bugs within his household. Patient states he has not taken any of his medication however there are no witnesses to him is that he lives in his hospital mostly by himself for most of the day. States he does live with his mother and his grandfather. Otherwise patient is resting comfortably asking for food to eat. - Related Data Allergies/Adverse Reactions: Sulfa (Sulfonamide Antibiotics) Allergy (Verified 03/17/15 23:07) pet dander Allergy (Uncoded 02/13/15 06:05) Past Medical History - Social History Smoking Status: Current Some Day Smoker Chew tobacco use (# tins/day): No Frequency of alcohol use: None Drug Abuse: None Family History: Reviewed & Not Pertinent Patient has suicidal ideation: No Patient has homicidal ideation: No Pulmonary Medical History: Reports: Hx Asthma Renal/ Medical History: Denies: Hx Peritoneal Dialysis Psychiatric Medical History: Reports: Hx Bipolar Disorder, Hx Depression, Hx Schizophrenia Past Surgical History: Reports: Hx Oral Surgery Review of Systems - Review of Systems Constitutional: No symptoms reported EENT: No symptoms reported Cardiovascular: No symptoms reported Respiratory: No symptoms reported Gastrointestinal: No symptoms reported Genitourinary: No symptoms reported Male Genitourinary: No symptoms reported Musculoskeletal: No symptoms reported Skin: No symptoms reported Hematologic/Lymphatic: No symptoms reported Neurological/Psychological: Hallucinations -: Yes All other systems reviewed and negative Physical Exam - Vital signs Vitals: Temp Pulse Resp BP Pulse Ox 98.5 F 78 16 139/81 H 97 11/18/17 18:48 11/18/17 18:48 11/18/17 18:48 11/18/17 18:48 11/18/17 18:48 Interpretation: Normal - General General appearance: Appears well, Alert - HEENT Head: Normocephalic, Atraumatic Eyes: Normal Pupils: PERRL - Respiratory Respiratory status: No respiratory distress Chest status: Nontender Breath sounds: Normal Chest palpation: Normal - Cardiovascular Rhythm: Regular Heart sounds: Normal auscultation Murmur: No - Abdominal Inspection: Normal Distension: No distension Bowel sounds: Normal Tenderness: Nontender Organomegaly: No organomegaly - Back Back: Normal, Nontender - Extremities General upper extremity: Normal inspection, Nontender, Normal color, Normal ROM , Normal temperature General lower extremity: Normal inspection, Nontender, Normal color, Normal ROM , Normal temperature, Normal weight bearing. No: Carmen's sign - Neurological Neuro grossly intact: Yes Cognition: Normal Orientation: AAOx4 Oil Trough Coma Scale Eye Opening: Spontaneous Love Coma Scale Verbal: Oriented Oil Trough Coma Scale Motor: Obeys Commands Oil Trough Coma Scale Total: 15 Speech: Normal Motor strength normal: LUE, RUE, LLE, RLE Sensory: Normal - Psychological Associated symptoms: Flat affect, Flight of ideas, Visual hallucinations - Skin Skin Temperature: Warm Skin Moisture: Dry Skin Color: Normal Course - Re-evaluation Re-evalutation: 11/19/17 03:04 Medically clear for psychiatric evaluation. Patient did become very disrupted and verbally aggressive towards staff during his stay here in ER therefore was given Haldol Benadryl Ativan - Vital Signs Vital signs: Temp Pulse Resp BP Pulse Ox 98.5 F 78 16 139/81 H 97 11/18/17 18:48 11/18/17 18:48 11/18/17 18:48 11/18/17 18:48 11/18/17 18:48 - Laboratory Result Diagrams: 11/18/17 19:20 11/18/17 19:20 Laboratory results interpreted by me: 11/18/17 11/18/17 19:20 19:20 Urine Blood SMALL H Ur Leukocyte Esterase TRACE H Urine Ascorbic Acid 20 H Salicylates < 1.0 L Acetaminophen < 10 L Discharge - Discharge Clinical Impression: Hallucinations Condition: Good Disposition: PSYCH HOSP/UNIT
[2017-11-18 20:05] LABS: URINE AMPHETAMINES SCREEN NEGATIVE; URINE BARBITURATES SCREEN NEGATIVE; URINE BENZODIAZEPINES SCREEN NEGATIVE; URINE COCAINE SCREEN NEGATIVE; URINE MARIJUANA (THC) SCREEN NEGATIVE; URINE METHADONE SCREEN NEGATIVE; URINE PHENCYCLIDINE SCREEN NEGATIVE
--- NOTE | 2017-11-18 23:35 | EKG REPORT ---
SEVERITY:- NORMAL ECG - SINUS RHYTHM : Confirmed by: Caitlin Olvera 18-Nov-2017 23:35:06
[2017-11-19] MEDS ORDERED: DIPHENHYDRAMINE HCL 50 MG/ML VIAL IM ONE (00:24)
[2017-11-19] MEDS ORDERED: HALOPERIDOL LACTATE INJ 5 MG/1 ML VIAL IM ONE (00:24)
[2017-11-19] MEDS ORDERED: LORAZEPAM INJ 2 MG/1 ML VIAL IM ONE (00:24)
[2017-11-19] MEDS ORDERED: OLANZAPINE 5 MG TABLET PO SCH (10:00)
[2017-11-19] MEDS ORDERED: DIVALPROEX SODIUM 500 MG TAB.SR.24H PO SCH (10:00)
[2017-11-19] MEDS ORDERED: BENZTROPINE MESYLATE 1 MG TABLET PO SCH (10:00)
--- NOTE | 2017-11-19 10:28 | ER Document Report ---
Doctor's Note Notes: 11/19/17 10:27 Rounds: Chart reviewed. Attempted to interview patient, but is very sleepy. He awakens, but does not answer questions. Being evaluated for hallucination and paranoid thoughts. Also reportedly not taking his medications. Vital signs are all essentially normal. Lab studies were also essentially normal. Patient has been started on antipsychotic medications and placement will be sought. Patient appears to be medically stable for transfer or discharge. Reji Miller MD
[2017-11-19 13:17] VITALS: BP 112/59
--- NOTE | 2017-11-19 16:10 | PSYCHOLOGICAL NOTE ---
Psych Note - Psych Note Psych Note: Reason for consult: IVC, History MH, noncompliant with medications, Persecutory delusions, paranoia and auditory hallucinations Contact permissions: Mother/IVC petitioner at bedside Patient is a 22 year old male who presented to the ED last evening via [facility], petitioned for IVC via mother for history of MH, auditory hallucinations, as well as persecutory delusions and paranoia (PUJA/FBI after/monitoring him, mother having listening devices in home monitoring him), and being noncompliant with prescribed medications. Patient was asleep and not easy to arouse this morning. Review of chart indicated patient was administered Haldol 5MG, Ativan 2MG and Benadryl 50MG at 0024 last night. He was just seen by [facility] team on 10/18/17 and 10/11/17 for similar etiology, started on medication for 2 days and discharged home. He had also been seen on 03/17/15 (subsequently admitted to [facility]) and 02/13/15 (subsequently admitted to [facility]) for similar etiology. Mother/IVC petitioner (MS Javier Goetz [phone]) was at bedside. She noted patient had been sleeping since she arrived at 0810. She identified this is patients 3rd visit to the ED in 30 days for similar etiology. She stated patient does not continue medications once home. She specified the first time he just didnt take medications the second time she told patient authorities had taken his rifle as a result of MH when actually she took it and locked it up but when he found out he didnt have it he stopped taking medications. She said he will only take his Vitamins nothing else. She identified the last clinician from previous ED visit told her about DSS and obtaining Guardianship. Provided psychoeducation on the process and how it would mean she is held accountable for him. She acknowledged the [facility] and [facility] hospitalizations in 2015 were his only hospitalizations. She stated he was being administered a long lasting Abilify injection at [facility] which worked well. She noted medications that were not helpful in the past were Risperdal (made patient twitch, look odd, act weird) and Latuda (increased SI, made him feel horrible the first 30 minutes after taking it). She stated patient was supposed to have follow up with [facility], keeps missing appointments, most recent was yesterday. She denied patient having a criminal record or legal issues. Diagnosis: 295.90 (F20.9) Schizophrenia per history per mother Impression/Plan: Recommendation to maintain IVC given this is patient's 3rd visit in 30 days. He keeps returning because per mother he refuses to take his medications shortly after being discharged. Recommended restart of medications he had been administered the past two visits given the issue was he would stop them. Mother noted a previous Abilify long lasting shot that was effective so recommended Prolixin PO with a follow up later in evening of the Prolixin Deconoate shot but since patient was so groggy this morning from the Ativan, Benadryl and Haldol administered at 0024 and then getting a dose of the Depakote and Zyprexa late morning the ED Physician wanted to wait to give any Prolixin until tomorrow so as to not over-medicate. Had already been seeking placement. Patient accepted to [facility] so went ahead with that IVC acceptance. Consulted with Dr. Newby regarding the management and care of patient. ED Physician in agreement with recommendations. Medication recommendations made by the psychiatric medical provider, Dr. Carmela LOPEZ. includes: Continue medication recommendations from last two ED visits Depakote 500MG twice a day for mood stabilization Zyprexa 5MG twice a day for psychosis, mood stabilization and impulse control Cogentin 1MG daily to curb possible tremors often associated with antipsychotic medications Once informed had been on a long lasting medication in past further medications changes took place and include Discontinue Depakote 500MG twice a day for mood stabilization Discontinue Zyprexa 5MG twice a day for psychosis, mood stabilization and impulse control Continue Cogentin 1MG daily to curb possible tremors often associated with antipsychotic medications Add Prolixin 5MG PO daily for psychosis and mood stabilization Add Prolixin Deconoate 12.5MG IM Q8P one time dose (lasts 3 weeks)
== END 2017-11-19 15:05 ==
LOC: ER 18:33
DX: F20.9 Schizophrenia, unspecified (principal); Z91.14 Patient's other noncompliance with medication regimen; J45.909 Unspecified asthma, uncomplicated; F17.200 Nicotine dependence, unspecified, uncomplicated; Z88.2 Allergy status to sulfonamides; Z91.048 Other nonmedicinal substance allergy status
CPT/HCPCS: 93005; 99285; 96372; 36415; 80307 ×4; 85025; 80053; 81001; 93010; J3490 ×3; J1200; J1630; J2060